=== PATIENT | male | born 1955 | race Caucasian/White ===

== ENCOUNTER 2019-07-12 05:59 | Inpatient (IN) ==
[2019-07-12] MEDS ORDERED: Lactated Ringers 1,000 ML PRIMARY IV SCH (06:00)
[2019-07-12] MEDS ORDERED: Gabapentin 600 MG TABLET PO ONE ×2 (06:00→06:02)
[2019-07-12] MEDS ORDERED: LIDOCAINE W/ SODIUM BICARB 0.5 ML SYR SUBD ONE (06:00)
[2019-07-12] MEDS ORDERED: ceFAZolin Inj 2gm (Premix) 2 GM/50 ML BAG IV ONE ×2 (06:00→06:03)
[2019-07-12] MEDS ORDERED: Nasal Sanitizer POPSWAB ampule 3 AMP (Nozin) PREOP DOSE ENOS SCH (06:00)
[2019-07-12] MEDS ORDERED: PANTOPRAZOLE 20 MG TABLET.DR PO ONE ×2 (06:00→06:01)
[2019-07-12] MEDS ORDERED: CELECOXIB 200 MG CAPSULE PO ONE ×2 (06:00→06:01)
[2019-07-12] MEDS ORDERED: ACETAMINOPHEN 500 MG TABLET PO ONE ×2 (06:00→06:02)
[2019-07-12] MEDS ORDERED: LIDOCAINE W/ SODIUM BICARB 0.5 ML SYR ONE (06:03)
[2019-07-12] MEDS ORDERED: Lactated Ringers 1,000 ML PRIMARY IV ONE ×3 (06:03→12:59)
[2019-07-12 06:28] LABS: BILIRUBIN,URINE SMALL (NEG); CLARITY,URINE CLEAR (CLEAR); COLOR,URINE YELLOW (Y); GLUCOSE, URINE (UA) NEGATIVE (NEG); OCCULT BLOOD,URINE NEGATIVE (NEG); PH,URINE 5.5 (5.0-8.5); PROTEIN,URINE NEGATIVE (NEG); UROBILINOGEN,URINE 0.2 EU/dL (0.2)
[2019-07-12 06:32] LABS: URINE SAMPLE TYPE CLEAN CATCH URINE
[2019-07-12] MEDS ORDERED: BUPIVACAINE SPLASH SCH ×2 (07:15)
[2019-07-12] MEDS ORDERED: KETOROLAC SPLASH SCH ×2 (07:15)
[2019-07-12] MEDS ORDERED: LIDOCAINE MPF 2% - 5 ML (20 MG/1 ML) ONE (07:38)
[2019-07-12] MEDS ORDERED: PROPOFOL 10 MG/1 ML (200 MG/20 ML) VIAL IV ONE (07:38)
[2019-07-12] MEDS ORDERED: KETAMINE 100 MG/1 ML - 5 ML ONE ×2 (07:39→12:20)
[2019-07-12] MEDS ORDERED: fentaNYL Inj 250 MCG/5 ML VIAL ONE (07:39)
[2019-07-12] MEDS ORDERED: ROCURONIUM 10 MG/1 ML - 5 ML VIAL IVP ONE (07:39)
[2019-07-12] MEDS ORDERED: MIDAZOLAM 5 MG/1 ML ONE (07:39)
[2019-07-12] MEDS ORDERED: DEXMEDETOMIDINE HCL 200 MCG/2 ML VIAL IV ONE (07:56)
[2019-07-12] MEDS ORDERED: Sodium Chloride 0.9% 1,000 ML with Potassium Chloride Inj 40 MEQ IV SCH ×2 (08:00)
[2019-07-12] MEDS ORDERED: Sodium Chloride 0.9% vial 20 ML ONE ×2 (08:14→09:21)
[2019-07-12] MEDS ORDERED: BACITRACIN 50,000 UNIT VIAL IRRIG ONE (08:14)
[2019-07-12] MEDS ORDERED: BUPivacaine Liposome/PF (Exparel) Inj 20ml vial INFIL ONE (09:21)
[2019-07-12] MEDS ORDERED: TRANEXAMIC ACID 1,000 MG / 10 ML VIAL ONE ×3 (09:35→12:50)
[2019-07-12] MEDS ORDERED: SUGAMMADEX SODIUM 200 MG/2 ML VIAL IV ONE (10:02)
[2019-07-12] MEDS ORDERED: ONDANSETRON 4 MG/2 ML VIAL IVP PRN ×2 (11:26→12:25)
[2019-07-12] MEDS ORDERED: HYDROmorphone 2 MG/1 ML IVP PRN (11:26)
[2019-07-12] MEDS ORDERED: LIDOCAINE W/ SODIUM BICARB 0.5 ML SYR SUBD PRN (11:26)
[2019-07-12 12:03] LABS: Hemoglobin [HGB] 14.1 g/dL (14.0-18.0)
[2019-07-12] MEDS ORDERED: CALCIUM CARBONATE 500 MG (TUMS) CHEWABLE TABLET PO PRN (12:25)
[2019-07-12] MEDS ORDERED: BISACODYL 5 MG TABLET PO PRN (12:25)
[2019-07-12] MEDS ORDERED: diphenhydrAMINE 25 MG CAPSULE PO PRN (12:25)
[2019-07-12] MEDS ORDERED: KETOROLAC 30 MG/1 ML VIAL ONE (12:59)
[2019-07-12] MEDS: Lactated Ringers 1,000 ML PRIMARY IV SCH (13:54)
[2019-07-12] MEDS: oxyCODONE/APAP 7.5/325 Tab 1 TAB TAB PO PRN ×3 (14:04→23:01)
[2019-07-12] MEDS ORDERED: Influenza 19-20 Vaccine (6mo+) 60 MCG/0.5 ML SYRINGE IM ONE (14:41)
[2019-07-12] MEDS ORDERED: POTASSIUM CHLORIDE 20 MEQ TAB PO ONE (16:06)
[2019-07-12] MEDS ORDERED: Sodium Chloride 0.9% 1,000 ML PRIMARY IV ONE (16:06)
[2019-07-12] MEDS: ASPIRIN 325 MG TABLET PO SCH (16:43)
[2019-07-12 18:47] LABS: BLOOD UREA NITROGEN 25 mg/dL (7-22); BUN/CREATININE RATIO 20.83 (6-20)
[2019-07-12] MEDS: ceFAZolin Inj 2gm (Premix) 2 GM/50 ML BAG IV SCH (18:56)
[2019-07-12] MEDS ORDERED: Magnesium Sulfate 2gm (Premix) 2 GM/50 ML BAG IV ONE (18:56)
[2019-07-12] MEDS: DOCUSATE 100 MG CAPSULE PO SCH (20:22)
[2019-07-12] MEDS ORDERED: Rosuvastatin Tab 20 MG TAB PO SCH (21:00)
[2019-07-13] MEDS: ceFAZolin Inj 2gm (Premix) 2 GM/50 ML BAG IV SCH (01:02)
[2019-07-13] MEDS: oxyCODONE/APAP 7.5/325 Tab 1 TAB TAB PO PRN ×3 (03:02→12:02)
[2019-07-13 04:44] LABS: Hematocrit [HCT] 35.5 % (42.0-52.0); Hemoglobin [HGB] 12.1 g/dL (14.0-18.0); MEAN CORPUSCULAR HGB CONC 34.1 g/dL (33-37); MEAN CORPUSCULAR VOLUME 89.4 FL (80-90); MEAN PLATELET VOLUME 9.1 FL (7.4-12.2); RED BLOOD COUNT 3.97 10^6/uL (4.70-6.10)
[2019-07-13 04:55] LABS: BLOOD UREA NITROGEN 18 mg/dL (7-22)
[2019-07-13 06:31] VITALS: BP 142/77; TEMP 98.5; O2SAT 95
[2019-07-13] MEDS ORDERED: ClonazePAM Tab 1 MG TABLET PO SCH (07:00)
[2019-07-13] MEDS ORDERED: OMEPRAZOLE 20 MG CAPSULE PO SCH (07:00)
[2019-07-13 07:19] VITALS: RESP 18
[2019-07-13] MEDS: Lactated Ringers 1,000 ML PRIMARY IV SCH ×2 (07:41→08:45)
[2019-07-13] MEDS: ASPIRIN 325 MG TABLET PO SCH (08:38)
[2019-07-13] MEDS: DOCUSATE 100 MG CAPSULE PO SCH (08:38)
[2019-07-13] MEDS ORDERED: Influenza 19-20 Vaccine (6mo+) 60 MCG/0.5 ML SYRINGE IM ONE (08:43)
[2019-07-13 08:46] LABS: HEMOGLOBIN A1C 5.82 % (4.2-6.0)
[2019-07-13] MEDS ORDERED: EZETIMIBE 10 MG TABLET PO SCH (09:00)
[2019-07-13] MEDS ORDERED: ENOXAPARIN SODIUM 30 MG/0.3 ML SYRINGE SUBCUT SCH (09:00)
[2019-07-13] MEDS ORDERED: Nalbuphine Inj 20 MG/ML Ampule IVP ONE (10:38)
== END 2019-07-13 12:21 | disposition home or self-care (01) | DRG 470 ==
LOC: OPS 05:59 → MED/SURG 12:27
PROVIDERS: ADMIT Orthopaedic Surgery; ATTEND Orthopaedic Surgery